=== PATIENT | female | born 1990 | race American Indian/Alaskan Native ===

== ENCOUNTER 2018-02-19 23:39 | Emergency (ER) | payer SELFPAY ==
[2018-02-20 00:02] VITALS: BP 123/83
== END 2018-02-20 02:34 | disposition left against medical advice (07) ==
LOC: ED 23:39
DX: R21 Rash and other nonspecific skin eruption (principal); Z53.21 Procedure and treatment not carried out due to patient leaving prior to being seen by health care provider